=== PATIENT | male | born 1965 | race Caucasian/White ===

== ENCOUNTER 2020-02-28 07:00 | Outpatient (REF) | payer BC, SELFPAY | END 2020-02-28 07:01 | disposition home or self-care (01) | LOC: HO.LAB 07:00 | PROVIDERS: PCP Internal Medicine; Visit Provider Internal Medicine | DX: Z20.828 Contact with and (suspected) exposure to other viral communicable diseases (principal) | CPT/HCPCS: C9803; U0003 ==

== ENCOUNTER 2020-03-26 07:06 | Outpatient (REF) | payer BC, SELFPAY ==
[2020-03-26 08:35] LABS: MANUAL DIFF FLAG NO
[2020-03-26 08:40] LABS: Basophils Percent Auto 0.2 % (0-2); Eosinophils Absolute Auto 0.1 X10*3/uL (0.0-0.4); Eosinophils Percent Auto 2.2 % (0-4); Imm Gran Abs Auto 0.01 X10*3/uL (0.00-0.03); Imm Gran Pct Auto 0.2 % (0.0-0.4); Mean Corpuscular HGB Conc 32.6 g/dl (31.0-36.0); Mean Corpuscular Hemoglobin 33.4 pg (27.0-33.0); Mean Corpuscular Volume 102.6 fL (80-98); Mean Platelet Volume 10.9 fL (9.4-12.4); Monocytes Absolute Auto 0.6 X10*3/uL (0.1-1.2); Monocytes Percent Auto 12.2 % (2-11); Neutrophils Absolute Auto 2.9 X10*3/uL (2.0-8.3); Neutrophils Percent Auto 64.2 % (45-73); Platelet Count 192 X10*3/uL (160-400); Red Blood Count 4.19 X10*6/uL (4.60-5.80); Red Cell Distribution Width 12.2 % (11.0-16.0); White Blood Count 4.5 X10*3/uL (4.8-10.8)
[2020-03-26 08:44] LABS: Glucose Urine UA NEG (NEG); Leukocyte Esterase Urine NEG (NEG); Nitrite Urine NEG (NEG); PH 6.5 (5.0-8.0); Specific Gravity - Urine 1.015 (1.005-1.025); Urine Blood NEG (NEG); Urine Ketones NEG (NEG); Urine Protein 1+ MG/DL (NEG-TRACE)
[2020-03-26 08:51] LABS: Appearance Urine CLEAR; Color Urine YELLOW
[2020-03-26 09:03] LABS: Alanine Aminotransferase 21 U/L (0-40); Alkaline Phosphatase 69 U/L (39-117); Anion Gap 12 (12-20); Aspartate Amino Transferase 31 U/L (5-37); Bilirubin Total 0.8 mg/dL (0.0-1.0); Blood Urea Nitrogen 24 mg/dL (9-16); Carbon Dioxide 32 mmol/L (22-29); Chloride 103 mmol/L (96-108); Cholesterol 154 mg/dL; Estimated Glomerular Filt Rate > 60; Glucose Fasting 88 mg/dL (60-99); HDL Cholesterol 60 mg/dL; LDL Cholesterol Calculated 82 mg/dl; Sodium 142 mmol/L (135-145); Total Protein 7.4 g/dL (6.5-8.0); Triglycerides 60 mg/dL
[2020-03-26 09:12] LABS: RBC Urine 0-2 /HPF (0); Sperm Urine NOTED; Squamous Epithelial Cell Urine TRACE /LPF; WBC Urine 0-2 /HPF (0-4)
[2020-03-26 09:13] LABS: Estimated Average Glucose 97 mg/dL
[2020-03-26 09:20] LABS: Prostate Specific Antigen 0.43 ng/mL (<0.05-4.0)
[2020-03-26 12:07] LABS: Reflex LDLD? No
== END 2020-03-26 07:07 | disposition home or self-care (01) ==
LOC: HO.LAB 07:06
PROVIDERS: PCP Internal Medicine; Visit Provider Internal Medicine
DX: Z00.01 Encounter for general adult medical examination with abnormal findings (principal); E11.40 Type 2 diabetes mellitus with diabetic neuropathy, unspecified; E78.00 Pure hypercholesterolemia, unspecified; R80.9 Proteinuria, unspecified; Z12.5 Encounter for screening for malignant neoplasm of prostate
CPT/HCPCS: 36415; 80053; 80061; 81001; 83036; 84153; 85025

== ENCOUNTER 2020-07-10 07:49 | Day surgery (SDC) | payer BC, SELFPAY ==
[2020-07-05 11:05] VITALS: BMI 29.4
[2020-07-10 07:59] VITALS: BP 178/87; PULSE 67; RESP 18; TEMP 36.3; O2SAT 99
[2020-07-10] MEDS: Sodium Phosphate,Mono-Dibasic 133 ML ENEMA PR (08:17)
--- NOTE | 2020-07-10 08:21 | PC.NURSE ---
fleets given for yellow to brownish liquid results
--- NOTE | 2020-07-10 08:28 | PC.NURSE ---
yellow after fleets
--- NOTE | 2020-07-10 08:54 | HO.ANESPROP2 ---
HPI - Anesthesia Eval Consult details Narrative: 54 yo patient here for colonoscopy [facility] Past Medical History Medical History COVID-19 vaccine administered CVA (cerebral vascular accident) Diabetes Elevated cholesterol Family History Family history of problems with anesthesia: No Surgical History Surgical History H/O colonoscopy History of carotid endarterectomy History of Problems with Anesthesia: No Social History Social History Are you a primary director of managed care to a significant other at home: No Do you presently have visiting nurse or other home services: No Alcohol intake: current Alcohol intake frequency: 3 or more drinks per day Smoking Status: Never smoker Use of substances other than those prescribed or required for medical reasons: No Have you been hit, kicked, punched, or otherwise hurt by someone within the past year? If so, by whom?: No Advance Directives Information Provided: No Recently lost weight without trying: No Meds Allergies Allergy/AdvReac Type Severity Reaction Status Date / Time No Known Allergies Allergy Unverified 12/01/19 15:17 [No Known Allergies*] Home Medications Medication Instructions Recorded Confirmed Last Taken Type Aspir-81 07/10/20 07/03/20 History atorvastatin 1 tab PO DAILY 07/10/20 07/10/20 07/09/20 History Exam Exam Date and Time: July 10, 2020 0854 Height,Weight and Vital Signs: Height 5 ft 10 in Weight 92.986 kg Last Vital Signs Temp 97.3 F 07/10/20 07:59 Pulse 67 07/10/20 07:59 Resp 18 07/10/20 07:59 BP 178/87 H 07/10/20 07:59 Pulse Ox 99 07/10/20 07:59 Airway Mallampati Class: III TM Dist: >3cm Neck ROM: Full Heart: RRR Lungs: CTAB Assessment and Plan Assessment Anesthesia Assessment: Anesthesia Plan Discussed and Chart Reviewed Final Anesthetic Review NPO: Yes ASA Class: III Final Preanesthetic Review: No Changes in Pt Med Stat, Meds/Allgs Chart Reviewed, Consent Obtained/Reviewed and Anes Risks/Benef Reviewed Patient Risk: Intermediate Procedure Risk: Low Assessment/Block/Sedation in SS: Assess/Block/Sedation-SS Anesthetic Plan Anesthetic Plan: MAC: Disposition: Standard PACU
--- NOTE | 2020-07-10 08:58 | PM.OP ---
Brief Operative Note Date of Service: 07/10/20 Pre-op diagnosis: screening Post-op diagnosis: same Surgeon: Cam Newsome Anesthesia: MAC Estimated blood loss (mL): 2 Pathology: other (polyp) Condition: stable Disposition: PACU
--- NOTE | 2020-07-10 09:00 | MHC.SHP ---
Pre-Procedural Eval Section A The patient is an INPATIENT: No Changes since office visit: No Cold of Flu in the past 2 weeks, No New Medical Problems, No Changes in Medication and No Patient answered all questions The History & Physical has been completed within 30 days and I have reviewed it.: Yes Section B Chief Complaint: screening Allergies: Allergies Allergy/AdvReac Type Severity Reaction Status Date / Time No Known Allergies Allergy Unverified 12/01/19 15:17 [No Known Allergies*] Plan I have reviewed the history and physical and performed a pertinent physical examination on my patient. No changes have occurred unless specified.
[2020-07-10 09:33] VITALS: BP 110/63; PULSE 61; RESP 14; TEMP 36.1; O2SAT 97
--- NOTE | 2020-07-10 09:34 | PM.OP ---
Brief Operative Note Date of Service: 07/10/20 Pre-op diagnosis: screening Post-op diagnosis: same Procedure: colonscopy Surgeon: Cam Newsome Anesthesia: MAC Estimated blood loss (mL): 0 Pathology: none sent Condition: stable Disposition: PACU
[2020-07-10 09:48] VITALS: BP 118/67; PULSE 60; RESP 17; TEMP 36.1; O2SAT 99
--- NOTE | 2020-07-10 15:40 | OP_ITS ---
SURGEON: Cam Newsome MD PREOPERATIVE DIAGNOSIS: POSTOPERATIVE DIAGNOSIS: PROCEDURE PERFORMED: Colonoscopy to the terminal ileum. ESTIMATED BLOOD LOSS: COMPLICATIONS: ANESTHESIA: ASSISTANTS: SPECIMENS: INDICATION: Colon cancer screening. MEDICATIONS: Monitored anesthesia care. DESCRIPTION OF PROCEDURE: History and physical was performed. The risks and benefits of the procedure were explained to the patient. Informed consent was obtained. The patient was placed in the left lateral decubitus position. A digital rectal exam was performed and was found to be normal. The Olympus pediatric video colonoscope was introduced into the rectum and advanced into the cecum without difficulty. The cecum was identified by transillumination, palpation, and identification of ileocecal valve. Examination was performed, the scope was removed. He tolerated the procedure well and was taken to recovery area in stable condition. FINDINGS: The terminal ileum was examined and appeared normal. The visualized colonic mucosa was within normal limits without evidence of masses or ulcers. The quality of prep was good. No polyps were identified. Retroflexed examination was normal. IMPRESSION: Normal colonoscopy. RECOMMENDATION: 1. Follow up as needed. 2. Repeat colonoscopy is recommended in 10 years for average risk individuals. MD CRISTIN Adnerson/ALIXL / [id number]
== END 2020-07-10 10:10 | disposition home or self-care (01) ==
PROVIDERS: PCP Internal Medicine; Visit Provider Internal Medicine Gastroenterology
PROC: 0DJD8ZZ Inspection of Lower Intestinal Tract, Via Natural or Artificial Opening Endoscopic (ICD-10-PCS; CPT 45378; principal; 2020-07-10 08:50)
DX: Z12.11 Encounter for screening for malignant neoplasm of colon (principal); I69.951 Hemiplegia and hemiparesis following unspecified cerebrovascular disease affecting right dominant side; Z86.39 Personal history of other endocrine, nutritional and metabolic disease; Z79.899 Other long term (current) drug therapy; Z79.82 Long term (current) use of aspirin
CPT/HCPCS: 45378

== ENCOUNTER 2020-07-17 07:50 | Outpatient (REF) | payer BC, SELFPAY ==
--- NOTE | ~2020-07-17 | XR_ITS ---
EXAMINATION: XR KNEES, STANDING AP XR KNEE, LEFT CLINICAL INFORMATION: Bilateral knee pain COMPARISON: None TECHNIQUE: Standing AP view of both knees is performed. Additional lateral and axial patella views of the left knee are also obtained. FINDINGS: Left: There is no fracture or dislocation. No definite joint narrowing. No subchondral sclerosis or erosive change, spurring, or chondrocalcinosis. There is normal bony mineralization. Lateral view suggests small suprapatellar effusion. Hoffa's fat pad appears normal. There may be mild lateral patellar tilting but no lateralization patella. There is extensive calcifications vasculature. Right: Normal bony mineralization. No focal joint narrowing or erosive change or chondrocalcinosis. There is extensive calcification of the vasculature. XR/XR knee standing BI IMPRESSION: 1. Left: Small suprapatellar effusion. Borderline lateral patellar tilt. 2. Right: Unremarkable. 3. 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
--- NOTE | ~2020-07-17 | XR_ITS ---
EXAMINATION: XR KNEES, STANDING AP XR KNEE, LEFT CLINICAL INFORMATION: Bilateral knee pain COMPARISON: None TECHNIQUE: Standing AP view of both knees is performed. Additional lateral and axial patella views of the left knee are also obtained. FINDINGS: Left: There is no fracture or dislocation. No definite joint narrowing. No subchondral sclerosis or erosive change, spurring, or chondrocalcinosis. There is normal bony mineralization. Lateral view suggests small suprapatellar effusion. Hoffa's fat pad appears normal. There may be mild lateral patellar tilting but no lateralization patella. There is extensive calcifications vasculature. Right: Normal bony mineralization. No focal joint narrowing or erosive change or chondrocalcinosis. There is extensive calcification of the vasculature. XR/XR knee LT 2V IMPRESSION: 1. Left: Small suprapatellar effusion. Borderline lateral patellar tilt. 2. Right: Unremarkable. 3. 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
== END 2020-07-17 07:51 | disposition home or self-care (01) ==
LOC: HO.HOSX 07:50
PROVIDERS: Visit Provider Orthopaedic Surgery
DX: M25.562 Pain in left knee (principal); M25.561 Pain in right knee
CPT/HCPCS: 73560; 73565

== ENCOUNTER 2020-09-27 10:13 | Outpatient (REF) | payer BC, SELFPAY ==
[2020-09-27 10:52] LABS: Estimated Average Glucose 100 mg/dL; Hemoglobin A1c % 5.1 %
[2020-09-27 11:36] LABS: Alanine Aminotransferase 13 U/L (0-40); Albumin Level 3.9 g/dL (3.5-5.0); Alkaline Phosphatase 78 U/L (39-117); Aspartate Amino Transferase 24 U/L (5-37); Bilirubin Direct 0.4 mg/dL (0.0-0.5); Bilirubin Total 0.9 mg/dL (0.0-1.0); Cholesterol 172 mg/dL; Glucose Fasting 88 mg/dL (60-99); HDL Cholesterol 68 mg/dL; LDL Cholesterol Calculated 81 mg/dl; Total Protein 7.4 g/dL (6.5-8.0); Triglycerides 115 mg/dL
[2020-09-27 11:50] LABS: Reflex LDLD? No
== END 2020-09-27 10:14 | disposition home or self-care (01) ==
LOC: HO.LNP 10:13
PROVIDERS: Visit Provider Internal Medicine
DX: E11.40 Type 2 diabetes mellitus with diabetic neuropathy, unspecified (principal); E78.00 Pure hypercholesterolemia, unspecified
CPT/HCPCS: 80061; 80076; 82947; 83036

== ENCOUNTER 2021-04-08 10:31 | Outpatient (REF) | payer BC, SELFPAY ==
[2021-04-08 10:41] LABS: MANUAL DIFF FLAG NO
[2021-04-08 11:25] LABS: Basophils Percent Auto 0.2 % (0-2); Eosinophils Absolute Auto 0.1 X10*3/uL (0.0-0.4); Hematocrit 44.7 % (42.0-52.0); Hemoglobin 14.5 g/dl (14.0-18.0); Imm Gran Abs Auto 0.01 X10*3/uL (0.00-0.03); Imm Gran Pct Auto 0.2 % (0.0-0.4); Lymphocytes Absolute Auto 1.1 X10*3/uL (1.2-4.9); Lymphocytes Percent Auto 24.7 % (20-40); Mean Corpuscular HGB Conc 32.4 g/dl (31.0-36.0); Mean Corpuscular Hemoglobin 33.3 pg (27.0-33.0); Mean Corpuscular Volume 102.5 fL (80.0-98.0); Monocytes Absolute Auto 0.5 X10*3/uL (0.1-1.2); Monocytes Percent Auto 11.5 % (2-11); Neutrophils Absolute Auto 2.8 x10*3/uL (2.0-8.3); Neutrophils Percent Auto 60.4 % (45-73); Platelet Count 191 X10*3/uL (160-400); Red Blood Count 4.36 X10*6/uL (4.60-5.80); Red Cell Distribution Width 12.2 % (11.0-16.0); White Blood Count 4.6 X10*3/uL (4.8-10.8)
[2021-04-08 11:42] LABS: Estimated Average Glucose 103 mg/dL; Hemoglobin A1c % 5.2 %
[2021-04-08 11:49] LABS: Appearance Urine CLEAR; Color Urine YELLOW; Glucose Urine UA NEG (NEG); Leukocyte Esterase Urine NEG (NEG); Nitrite Urine NEG (NEG); Specific Gravity - Urine 1.015 (1.005-1.025); Urine Blood NEG (NEG); Urine Ketones NEG (NEG); Urine Protein 1+ MG/DL (NEG-TRACE)
[2021-04-08 12:29] LABS: Creatinine Urine 73.46 mg/dL; Microalbum/Creatinine Ratio Ur 534.9 ug/mg cr
[2021-04-08 12:39] LABS: PSA,Total (Free>4and<10) 0.49 ng/mL (0.00-4.00)
[2021-04-08 12:56] LABS: Alanine Aminotransferase 25 U/L (0-40); Alkaline Phosphatase 74 U/L (39-117); Anion Gap 13 (12-20); Aspartate Amino Transferase 33 U/L (5-37); Bilirubin Total 0.9 mg/dL (0.0-1.0); Blood Urea Nitrogen 20 mg/dL (9-16); Calcium 9.6 mg/dL (8.4-10.2); Carbon Dioxide 28 mmol/L (22-29); Chloride 105 mmol/L (96-108); Cholesterol 141 mg/dL; Estimated Glomerular Filt Rate 55; Glucose Fasting 92 mg/dL (60-99); HDL Cholesterol 48 mg/dL; LDL Cholesterol Calculated 76 mg/dl; Potassium 4.4 mmol/L (3.3-5.1); Sodium 142 mmol/L (135-145); Total Protein 7.8 g/dL (6.5-8.0); Triglycerides 87 mg/dL
[2021-04-08 13:05] LABS: RBC Urine 0 /HPF (0); Squamous Epithelial Cell Urine TRACE /LPF; WBC Urine 0 /HPF (0-4)
== END 2021-04-08 10:32 | disposition home or self-care (01) ==
LOC: HO.LNP 10:31
PROVIDERS: Visit Provider Internal Medicine
DX: Z00.00 Encounter for general adult medical examination without abnormal findings (principal); E11.40 Type 2 diabetes mellitus with diabetic neuropathy, unspecified; I10 Essential (primary) hypertension; E78.00 Pure hypercholesterolemia, unspecified; Z12.5 Encounter for screening for malignant neoplasm of prostate
CPT/HCPCS: 80053; 80061; 81001; 81003; 82043; 83036; 84153; 85025

== ENCOUNTER 2021-07-19 10:31 | Outpatient (REF) | payer BC, SELFPAY ==
[2021-07-19 11:23] LABS: Blood Urea Nitrogen 25 mg/dL (9-16); Estimated Glomerular Filt Rate 57
== END 2021-07-19 10:32 | disposition home or self-care (01) ==
LOC: HO.LNP 10:31
PROVIDERS: Visit Provider Internal Medicine
DX: Z01.812 Encounter for preprocedural laboratory examination (principal)
CPT/HCPCS: 82565; 84520

== ENCOUNTER 2021-10-11 10:54 | Outpatient (REF) | payer BC, SELFPAY ==
[2021-10-11 11:40] LABS: Estimated Average Glucose 105 mg/dL; Hemoglobin A1c % 5.3 %
[2021-10-11 11:59] LABS: Alanine Aminotransferase 17 U/L (0-40); Albumin Level 3.9 g/dL (3.5-5.0); Alkaline Phosphatase 76 U/L (39-117); Anion Gap 12 (12-20); Aspartate Amino Transferase 22 U/L (5-37); Bilirubin Direct 0.3 mg/dL (0.0-0.5); Bilirubin Total 0.6 mg/dL (0.0-1.0); Blood Urea Nitrogen 21 mg/dL (9-16); Calcium 9.2 mg/dL (8.4-10.2); Carbon Dioxide 31 mmol/L (22-29); Chloride 103 mmol/L (96-108); Cholesterol 153 mg/dL; Estimated Glomerular Filt Rate 58; Glucose Fasting 103 mg/dL (60-99); HDL Cholesterol 49 mg/dL; LDL Cholesterol Calculated 85 mg/dl; Potassium 4.1 mmol/L (3.3-5.1); Sodium 142 mmol/L (135-145); Total Protein 7.7 g/dL (6.5-8.0); Triglycerides 95 mg/dL
== END 2021-10-11 10:55 | disposition home or self-care (01) ==
LOC: HO.LNP 10:54
PROVIDERS: Visit Provider Internal Medicine
DX: E78.00 Pure hypercholesterolemia, unspecified (principal); I10 Essential (primary) hypertension
CPT/HCPCS: 80053; 80061; 80076; 82248; 83036

== ENCOUNTER 2022-04-21 10:39 | Outpatient (REF) | payer BC, SELFPAY ==
[2022-04-21 10:43] LABS: MANUAL DIFF FLAG NO
[2022-04-21 11:23] LABS: Basophils Percent Auto 0.6 % (0-2); Eosinophils Absolute Auto 0.2 X10*3/uL (0.0-0.4); Eosinophils Percent Auto 3.2 % (0-4); Hematocrit 46.2 % (42.0-52.0); Hemoglobin 15.2 g/dl (14.0-18.0); Imm Gran Abs Auto 0.01 X10*3/uL (0.00-0.03); Imm Gran Pct Auto 0.2 % (0.0-0.4); Lymphocytes Absolute Auto 1.1 X10*3/uL (1.2-4.9); Lymphocytes Percent Auto 21.2 % (20-40); Mean Corpuscular HGB Conc 32.9 g/dl (31.0-36.0); Mean Corpuscular Hemoglobin 33.1 pg (27.0-33.0); Mean Corpuscular Volume 100.7 fL (80.0-98.0); Mean Platelet Volume 10.7 fL (9.4-12.4); Monocytes Absolute Auto 0.6 X10*3/uL (0.1-1.2); Monocytes Percent Auto 10.9 % (2-11); Neutrophils Absolute Auto 3.5 x10*3/uL (2.0-8.3); Neutrophils Percent Auto 63.9 % (45-73); Platelet Count 201 X10*3/uL (160-400); Red Blood Count 4.59 X10*6/uL (4.60-5.80); Red Cell Distribution Width 12.3 % (11.0-16.0); White Blood Count 5.4 X10*3/uL (4.8-10.8)
[2022-04-21 11:55] LABS: Appearance Urine Clear; Color Urine Yellow; Glucose Urine UA Negative (Negative); Leukocyte Esterase Urine Negative (Negative); Nitrite Urine Negative (Negative); UMIC TRIGGER UACC YES; Urine Blood Negative (Negative); Urine Ketones Negative (Negative); Urine Protein 100 (2+) mg/dL (Neg-Trace)
[2022-04-21 11:59] LABS: Bacteria Urine None Seen (None Seen); Hyaline Casts Urine 0-2 /LPF (0-2); RBC Urine 0-2 /HPF (0-2); Squamous Epithelial Cell Urine 0-2 /HPF (0-2); WBC Urine 0-5 /HPF (0-5)
[2022-04-21 12:30] LABS: Alanine Aminotransferase 16 U/L (0-40); Albumin Level 3.8 g/dL (3.5-5.0); Alkaline Phosphatase 78 U/L (39-117); Anion Gap 10 (12-20); Aspartate Amino Transferase 21 U/L (5-37); Bilirubin Direct 0.2 mg/dL (0.0-0.5); Bilirubin Total 0.8 mg/dL (0.0-1.0); Blood Urea Nitrogen 17 mg/dL (9-16); Calcium 9.1 mg/dL (8.4-10.2); Carbon Dioxide 33 mmol/L (22-29); Chloride 103 mmol/L (96-108); Cholesterol 167 mg/dL; Estimated Glomerular Filt Rate > 60; Glucose Fasting 98 mg/dL (60-99); HDL Cholesterol 53 mg/dL; LDL Cholesterol Calculated 99 mg/dl; Potassium 4.4 mmol/L (3.3-5.1); Sodium 142 mmol/L (135-145); Total Protein 7.4 g/dL (6.5-8.0); Triglycerides 79 mg/dL
[2022-04-21 12:32] LABS: Creatinine Urine 50.74 mg/dL
[2022-04-21 12:35] LABS: PSA,Total (Free>4and<10) 0.56 ng/mL (0.00-4.00)
[2022-04-21 12:44] LABS: Microalbum/Creatinine Ratio Ur 1564.8 ug/mg cr
[2022-04-21 12:58] LABS: Reflex LDLD? No
== END 2022-04-21 10:40 | disposition home or self-care (01) ==
LOC: HO.LNP 10:39
PROVIDERS: Visit Provider Internal Medicine
DX: Z12.5 Encounter for screening for malignant neoplasm of prostate (principal); E11.40 Type 2 diabetes mellitus with diabetic neuropathy, unspecified; I10 Essential (primary) hypertension; E78.00 Pure hypercholesterolemia, unspecified; I77.9 Disorder of arteries and arterioles, unspecified
CPT/HCPCS: 80053; 80061; 80076; 81001; 81003; 82043; 82248; 84153; 85025

== ENCOUNTER 2023-04-10 11:20 | Outpatient (REF) | payer BC, SELFPAY ==
[2023-04-10 11:24] LABS: MANUAL DIFF FLAG NO
[2023-04-10 11:44] LABS: Appearance Urine Clear; Color Urine Yellow; Glucose Urine UA Negative (Negative); Leukocyte Esterase Urine Negative (Negative); Nitrite Urine Negative (Negative); Specific Gravity - Urine 1.015 (1.005-1.025); UMIC TRIGGER UACC YES; Urine Blood Negative (Negative); Urine Ketones Negative (Negative); Urine Protein 30 (1+) mg/dL (Neg-Trace)
[2023-04-10 11:46] LABS: Basophils Percent Auto 0.4 % (0-2); Eosinophils Absolute Auto 0.1 X10*3/uL (0.0-0.4); Eosinophils Percent Auto 2.8 % (0-4); Hematocrit 42.6 % (42.0-52.0); Hemoglobin 13.8 g/dl (14.0-18.0); Imm Gran Abs Auto 0.02 X10*3/uL (0.00-0.03); Imm Gran Pct Auto 0.4 % (0.0-0.4); Lymphocytes Percent Auto 20.9 % (20-40); Mean Corpuscular HGB Conc 32.4 g/dl (31.0-36.0); Mean Corpuscular Hemoglobin 33.4 pg (27.0-33.0); Mean Corpuscular Volume 103.1 fL (80.0-98.0); Mean Platelet Volume 10.6 fL (9.4-12.4); Monocytes Absolute Auto 0.5 X10*3/uL (0.1-1.2); Neutrophils Absolute Auto 3.2 x10*3/uL (2.0-8.3); Neutrophils Percent Auto 64.5 % (45-73); Platelet Count 207 X10*3/uL (160-400); Red Blood Count 4.13 X10*6/uL (4.60-5.80); Red Cell Distribution Width 12.6 % (11.0-16.0); White Blood Count 4.9 X10*3/uL (4.8-10.8)
[2023-04-10 11:48] LABS: Bacteria Urine None Seen (None Seen); Hyaline Casts Urine 0-2 /LPF (0-2); RBC Urine 0-2 /HPF (0-2); Squamous Epithelial Cell Urine 0-2 /HPF (0-2); WBC Urine 0-5 /HPF (0-5)
[2023-04-10 11:54] LABS: Estimated Average Glucose 105 mg/dL; Hemoglobin A1c % 5.3 % (<6.0)
[2023-04-10 11:59] LABS: Alanine Aminotransferase 20 U/L (0-40); Albumin Level 3.8 g/dL (3.5-5.0); Alkaline Phosphatase 69 U/L (39-117); Anion Gap 15 (12-20); Aspartate Amino Transferase 23 U/L (5-37); Bilirubin Total 0.6 mg/dL (0.0-1.0); Blood Urea Nitrogen 36 mg/dL (9-16); Calcium 9.5 mg/dL (8.4-10.2); Carbon Dioxide 28 mmol/L (22-29); Chloride 104 mmol/L (96-108); Cholesterol 149 mg/dL (<200); Estimated Glomerular Filt Rate 44; Glucose Fasting 100 mg/dL (60-99); HDL Cholesterol 45 mg/dL (>40); LDL Cholesterol Calculated 88 mg/dL (<100); Potassium 4.4 mmol/L (3.3-5.1); Sodium 143 mmol/L (135-145); Total Protein 7.6 g/dL (6.5-8.0); Triglycerides 83 mg/dL (<150)
[2023-04-10 12:15] LABS: PSA,Total (Free>4and<10) 0.54 ng/mL (0.00-4.00)
[2023-04-10 12:43] LABS: Creatinine Urine 108.47 mg/dL; Microalbum/Creatinine Ratio Ur 306.9 ug/mg cr (<30)
== END 2023-04-10 11:21 | disposition home or self-care (01) ==
LOC: HO.LNP 11:20
PROVIDERS: Visit Provider Internal Medicine
DX: Z00.00 Encounter for general adult medical examination without abnormal findings (principal); Z12.5 Encounter for screening for malignant neoplasm of prostate; E11.40 Type 2 diabetes mellitus with diabetic neuropathy, unspecified; E78.00 Pure hypercholesterolemia, unspecified; I10 Essential (primary) hypertension
CPT/HCPCS: 80053; 80061; 81001; 82043; 82570; 83036; 84153; 85025

== ENCOUNTER 2023-10-16 11:20 | Outpatient (REF) | payer BC, SELFPAY ==
[2023-10-16 12:05] LABS: Alanine Aminotransferase 23 U/L (0-40); Albumin Level 4.1 g/dL (3.5-5.0); Alkaline Phosphatase 72 U/L (39-117); Aspartate Amino Transferase 26 U/L (5-37); Bilirubin Direct 0.3 mg/dL (0.0-0.5); Bilirubin Total 0.9 mg/dL (0.0-1.0); Cholesterol 132 mg/dL (<200); Glucose Fasting 88 mg/dL (60-99); HDL Cholesterol 46 mg/dL (>40); LDL Cholesterol Calculated 65 mg/dL (<100); Total Protein 7.9 g/dL (6.5-8.0); Triglycerides 105 mg/dL (<150)
[2023-10-16 12:45] LABS: Estimated Average Glucose 108 mg/dL; Hemoglobin A1c % 5.4 % (<6.0)
[2023-10-16 13:45] LABS: Reflex LDLD? No
== END 2023-10-16 11:21 | disposition home or self-care (01) ==
LOC: HO.LNP 11:20
PROVIDERS: Visit Provider Internal Medicine
DX: E11.40 Type 2 diabetes mellitus with diabetic neuropathy, unspecified (principal); E78.00 Pure hypercholesterolemia, unspecified
CPT/HCPCS: 80061; 80076; 82947; 83036

== ENCOUNTER 2024-04-14 10:43 | Outpatient (REF) | payer BC, SELFPAY ==
[2024-04-14 11:09] LABS: MANUAL DIFF FLAG NO
[2024-04-14 11:26] LABS: Basophils Percent Auto 0.6 % (0-2); Eosinophils Absolute Auto 0.3 X10*3/uL (0.0-0.4); Eosinophils Percent Auto 5.7 % (0-4); Hematocrit 43.3 % (42.0-52.0); Imm Gran Abs Auto 0.01 X10*3/uL (0.00-0.03); Imm Gran Pct Auto 0.2 % (0.0-0.4); Lymphocytes Absolute Auto 1.1 X10*3/uL (1.2-4.9); Lymphocytes Percent Auto 23.9 % (20-40); Mean Corpuscular HGB Conc 32.3 g/dl (31.0-36.0); Mean Corpuscular Hemoglobin 33.3 pg (27.0-33.0); Mean Corpuscular Volume 102.9 fL (80.0-98.0); Mean Platelet Volume 10.5 fL (9.4-12.4); Monocytes Absolute Auto 0.6 X10*3/uL (0.1-1.2); Monocytes Percent Auto 12.5 % (2-11); Neutrophils Absolute Auto 2.7 x10*3/uL (2.0-8.3); Neutrophils Percent Auto 57.1 % (45-73); Platelet Count 218 X10*3/uL (160-400); Red Blood Count 4.21 X10*6/uL (4.60-5.80); Red Cell Distribution Width 13.1 % (11.0-16.0); White Blood Count 4.7 X10*3/uL (4.8-10.8)
[2024-04-14 11:27] LABS: Appearance Urine Clear; Color Urine Yellow; Glucose Urine UA Negative (Negative); Leukocyte Esterase Urine Negative (Negative); Nitrite Urine Negative (Negative); PH 6.5 (5.0-9.0); Specific Gravity - Urine 1.015 (1.005-1.025); UMIC TRIGGER UACC YES; Urine Blood Negative (Negative); Urine Ketones Negative (Negative); Urine Protein 30 (1+) mg/dL (Neg-Trace)
[2024-04-14 11:29] LABS: Bacteria Urine None Seen (None Seen); Hyaline Casts Urine 0-2 /LPF (0-2); RBC Urine 0-2 /HPF (0-2); Squamous Epithelial Cell Urine 0-2 /HPF (0-2); WBC Urine 0-5 /HPF (0-5)
[2024-04-14 11:34] LABS: Estimated Average Glucose 108 mg/dL; Hemoglobin A1C 132.1195 umol/L; Hemoglobin A1c % 5.4 % (<6.0); Total Hemoglobin (HGBA1C) 3745.6374 umol/L
[2024-04-14 11:47] LABS: Alanine Aminotransferase 24 U/L (0-40); Alkaline Phosphatase 65 U/L (39-117); Anion Gap 11 (12-20); Aspartate Amino Transferase 33 U/L (5-37); Bilirubin Total 0.6 mg/dL (0.0-1.0); Blood Urea Nitrogen 26 mg/dL (9-16); Calcium 9.5 mg/dL (8.4-10.2); Carbon Dioxide 29 mmol/L (22-29); Chloride 106 mmol/L (96-108); Cholesterol 143 mg/dL (<200); Estimated Glomerular Filt Rate > 60; Glucose Fasting 99 mg/dL (60-99); HDL Cholesterol 50 mg/dL (>40); LDL Cholesterol Calculated 75 mg/dL (<100); Potassium 4.5 mmol/L (3.3-5.1); Sodium 141 mmol/L (135-145); Triglycerides 90 mg/dL (<150)
[2024-04-14 12:03] LABS: PSA,Total (Free>4and<10) 0.48 ng/mL (0.00-4.00)
[2024-04-14 12:49] LABS: Creatinine Urine 81.62 mg/dL
--- OUTSIDE RECORDS SUMMARY | 2024-04-14 14:27 | XMS_ITS ---
Author Organization Ehsan Howard MD Address [address] [place], [place] [id number] Care Team Providers Care Representative Name Role Phone Ehsan Howard Primary Care Provider [phone] Allergies Allergen (clinical drug ingredient) Drug/Non Drug Allergy documented on EMR Reaction Allergy Type Onset Date Status metformin Metformin HCl diarrhea Drug Allergy Act franklin labetalol Labetalol HCl rash Drug Allergy Act franklin glimepiride Glimepiride heart burn nausea Drug Allergy Active REASON FOR VISIT 6 MO F/U Medications Medication SIG (Take, Route, Frequency, Duration) Notes Start Date End Date Status Atorvastatin Calcium 80 MG take 1 tablet once daily Orally Once a day Active Lisinopril 10 MG TAKE ONE TABLET BY MOUTH ONCE DAILY Active Aspir-81 81 MG 1 tablet Orally Once a day Active Viagra 100 MG 1/2 tablet as needed Orally Once a day for 30 day(s) 05/19/2016 Not-Taking Vital Signs Blood pressure systolic 120 mm Hg 10/29/19 24 Blood pressure diastolic 70 mm Hg 024 Height 71 in 10/29/2023 Weight 231 lbs 10/29/2023 BMI 32.21 kg/m2 10/29/2023 weight is up 11 pounds since 04-17-23 Encounters Encounter Location Date Provider Diagnosis Ehsan Howard MD [address] [place] [address] Drive [address] [place] [phone] 10/29/2023 Ehsan Howard Type 2 diabetes robert itus with diabetic neuropathy E11.40 ; Essential hypertension I10 and Pure hypercholesterolemia E78.00 Assessments Encounter Date Diagnosis (ICD Code) Assessment Notes Treatment Notes Treatment Clinical Notes Section Notes 10/29/2023 Type 2 diabetes robert itus with diabetic neuropathy (ICD-10 - E11.40) gaining weight and not exercising. tried to get him back to taking care. seems uninterested , will continue to monitor 10/29/2023 Essential hypertensi on (ICD-10 - I10) doing great on meds 10/29/2023 Pure hypercholesterolemia (ICD-10 - E78.00) good ldl Plan Of Treatment Medication Medication Name Sig Start Date Stop Date Notes Atorvastatin Calcium 80 MG take 1 tablet once daily Orally Once a day Lisinopril 10 MG TAKE ONE TABLET BY OUT ONCE DAILY Treatment Notes Assessment Notes Type 2 diabetes mellitus with diabetic n europathy gaining weight and not exercising. tried to get him back to taking care. seems uninterested, will continue to monitor Essential hypertension doing great on me ds Pure hypercholesterolemia good ldl Next Appt Details Provider Name:Ehsan Mazariegos ier, 04/21/2024 08:30:00 AM, [address], [address], [place], [place], [phone], Progress Notes * Vazquez GONZALES MDOB:1965 (58 yo M)Acc No.[id number]:10/29/2023 Progress Notes Patient:?Vazquez Gonzales Provider:?Ehsan Howard MD :1965???Age:58 Y???Sex:Male Mathew e:10/29/2023 Address:[address] [place], [place] [id number] Subjective: * Chief Complaints: * ???6 MO F/U * HPI: ???Symptom(s):? patient s a 58 yo male her for 6 month follow up visit, has stopped exercise. no interest. * ROS:?General/Constitutional:?Denies?Chills.?Denies?Fatigue.?Denies?Fever.?Denies?Headache.?ENT:?Patient denies?decreased sense of smell , any loss of taste , sore throat.?Denies?Sore throat.?Endocrine:?Denies?Difficulty sleeping.?Denies?Dizziness.?Denies?Excessive sweating.?Denies?Excessive thirst.?Denies?Frequent urination.?Respiratory:?Denies?Cough.?Denies?Shortness of breath at rest.?Denies?Shortness of breath with exertion.?Gastrointestinal:?Denies?Diarrhea.?Denies?Nausea.?Musculoskeletal:?Patient denies?muscle aches.?Peripheral Vascular:?Patient denies?red and blue toes.? * Medical History:? * Surgical History:? * Hospitalization/Major Diagno stic Procedure:? * Medications:?TakingAspir-81 81 MG Tablet Delayed Release 1 tablet Orally Once a dayAtorvastatin Calcium 80 MG Tablet take 1 tablet once daily Orally Once a dayLisinopril 10 MG Tablet TAKE ONE TABLET BY MOUTH ONCE DAILY Taking Aspir-81 81 MG Tablet Delayed Release 1 tablet Orally Once a dayTaking Atorvastatin Calcium 80 MG Tablet take 1 tablet once daily Orally Once a dayTaking Lisinopril 10 MG Tablet TAKE ONE TABLET BY MOUTH ONCE DAILY Not-Taking/PRNViagra 100 MG Tablet 1/2 tablet as needed Orally Once a dayMedication List reviewed and reconciled with the patientNot-Taking/PRN Viagra 100 MG Tablet 1/2 tablet as needed Orally Once a dayMedication List reviewed and reconciled with the patient * Allergies:?Metformin HCl: di arrheaGlimepiride: heart burn nauseaLabetalol HCl: rashyes[Allergies Verified] Objective: * Vitals:?Ht: 71, Wt:231, BMI: 32.21, BP:120/70 weight is up 11 pounds since 04-17-23. * ???Past Orders: ???Lab:Liver Panel (Order Da te 10/16/2023) (Collection Date - 10/16/2023) ? Value Reference Range ?Bilirubin Total 0.9 0.0- 1.0 - mg/dL ?Bilirubin Direct 0.3 0.0 -0.5 - mg/dL ?Aspartate Amino Transferase 26 5-37 - U/L ?Alanine Aminotransferase 23 0-40 - U/L ?Total Protein 7.9 6.5-8. 0 - g/dL ?Albumin Level 4.1 3.5-5. 0 - g/dL ?Alkaline Phosphatase 72 39-117 - U/L ???Lab:Glucose Fasting (Orde r - 10/16/2023) (Collection Date - 10/16/2023) ? Value Reference Range ?Glucose Fasting 88 60-9 9 - mg/dL ???Lab:Lipid Panel with Refl ex (Order Date - 10/16/2023) (Collection Date - 10/16/2023) ? Value Reference Range ?Triglycerides 105 <150 - mg/dL ?Cholesterol 132 <200 - m g/dL ?LDL Cholesterol Calculated 65 <100 - mg/dL ?HDL Cholesterol 46 >40 - mg/dL ???Lab:Hemoglobin A1c (Order Date - 10/16/2023) (Collection Date - 10/16/2023) ? Value Reference Range ?Hemoglobin A1c % 5.4 <6. 0 - % ?Estimated Average Glucose 108 - mg/dL * Examination: ???General Examination: ?GENERAL APPEARANCE:? alert, well hydrated, in no distress .?NECK/THYROID:? no carotid bruit.?SKIN:? good turgor.?HEART:? no murmurs, rubs, gallops, regular rate and rhythm.?LUNGS:? no wheezes, rales, rhonchi, good air movement, clear to auscultation bilaterally.? Assessment: * Assessment: 1.?Type 2 diabetes mellitus with diabetic neuropathy - E11.40 (Primary)?2.?Essential hypertension - I10?3.?Pure hypercholesterolemia - E78.00? Plan: * Treatment: 2.?Essential hypertension? Continue Lisinopril Tablet, 10 MG, TAKE ONE TABLET BY MOUTH ONCE DAILY.?? Notes: doing great on meds.?? 3.?Pure hypercholesterolemia ? Continue Atorvastatin Calcium Tablet, 80 MG, take 1 tablet once daily, Orally, Once a day.?? Notes: good ldl.?? * Procedure Codes:? * * Sign off status: Completed true * Provider:?Ehsan Howard MD Date:?0 10/29/2023 Generated for Edis new/Malathi/Christianitting on:?04/14/2024 02:27 PM EST History and Physical Notes * HPI (History of Present Illness) Category Sub-Category Detail Notes Category Not es Symptom(s) patient s a 58 yo male her for 6 month follow up visit, has stopped exercise. no interest Examination Category Sub-Category Detail Notes Category Not es General Examination GENERAL APPEARANCE: alert, w ell hydrated, in no distress NECK/THYROID: no carotid bruit HEART: no murmurs, rubs, ga llops, regular rate and rhythm LUNGS: no wheezes, rales, r honchi, good air movement, clear to auscultation bilaterally SKIN: good turgor
--- OUTSIDE RECORDS SUMMARY | 2024-04-14 14:27 | XMS_ITS ---
Author Organization Ehsan Howard MD Address [address] [place] [phone] Care Team Providers Care Plan Checker Name Role Phone Ehsan Howard Primary Care Provider REASON FOR VISIT Carotid duplex Encounters Encounter Location Date Provider Diagnosis Ehsan Howard MD [address] [facility] [address] [place] [phone] 12/04/2023 Ehsan Howard Plan Of Treatment Next Appt Details Provider Name:Ehsan Mazariegos ier, 04/21/2024 08:30:00 AM, [address] [place] [address], [address] [facility], [place], [place], [phone], Progress Notes * Vazquez GONZALES MDOB:1965 (58 yo M)Acc No.[id number]:12/04/2023 Patient:?Vazquez Gonzales :1965???Age:58 Y???Sex:Male Address:[address] [place] [address], [place] [address] * true * Date:? Generated for Edis new/Malathi/Francheska on:?04/14/2024 02:27 PM EST
--- OUTSIDE RECORDS SUMMARY | 2024-04-14 14:27 | XMS_ITS | Clinical Summary ---
Author Organization [facility] Address [address] [place] [address] Care Team Providers Care Jackspooler Name Role Phone Unavailable Primary Care Provider Unavailabl e Allergies No known active allergies Medications * This document contains information received from the source organization and may not represent a complete record from that organization. No known medications Social History Tobacco Use Types Packs/Day Years Used Date Smoking Tobacco: Never Smokeless Tobacco: Never Alcohol Use Standard Drinks/Week Comments Not Asked 0 (1 standard drink = 0.6 oz pur e alcohol) Sex and Gender Information Value Date Recorded Sex Assigned at Not on file Legal Sex Male 1:52 PM EDT Gender Identity Not on file Sexual Orientation Not on file Last Filed Vital Signs Vital Sign Reading Time Taken Comments Blood Pressure 118/82 04/07/2016 8:13 AM EST Pulse 80 04/07/2016 8:13 AM EST Temperature - - Respiratory Rate - - Oxygen Saturation - - Inhaled Oxygen Concentration - - Weight 123 kg (272 lb) 10/25/2013 8:06 AM EDT Height 177.8 cm (5' 10 ) 10/25/2013 8:06 AM EDT Body Mass Index 39.03 10/25/2013 8:06 AM EDT Plan of Treatment Health Maintenance Due Date Last Done Comments Hepatitis C Screening 1965 DTaP/Tdap/Td (1 - Tdap) 07/27/1981 Pneumococcal 50+ years (1 of 1 - PCV) 07/27/2013 Zoster (Shingrix) (1 of 2) 07/27/2013 COVID-19 Vaccine ( - 2023-2 5 season) 2023 Influenza (#1) 2023 RSV (1 - 1-dose 75+ series) 07/27/2038 HPV Vaccine Aged Out No longer eligi ble based on patient's age to complete this topic Hep A Aged Out No longer eligi ble based on patient's age to complete this topic Hep B Aged Out No longer eligi ble based on patient's age to complete this topic Hib Aged Out No longer eligi ble based on patient's age to complete this topic Meningococcal ACWY Aged Out No longer eligible based on patient's age to complete this topic Zoster (Zostavax) Discontinued
--- OUTSIDE RECORDS SUMMARY | 2024-04-14 14:27 | XMS_ITS ---
Author Organization Ehsan Howard MD Address [address] [place], [place] [id number] Care Team Providers Care Buffing Wheel Operator Name Role Phone Ehsan Howard Primary Care Provider Results Component Value Reference Range Notes Complete Blood Count Auto Di ff (Not yet reviewed by provider) Interpretation: Performing Lab:[facility], [address] [place] [phone] Notes/Report: White Blood Count 4.7 4.8-10.8 X10*3/uL Red Blood Count 4.21 4.60-5.80 X10*6/uL Hemoglobin 14.0 14.0-18.0 g/dl Hematocrit 43.3 42.0-52.0 % Mean Corpuscular Volume 102.9 80.0-98.0 fL Mean Corpuscular Hemoglobin 33.3 27.0-33.0 pg Mean Corpuscular HGB Conc 32.3 31.0-36.0 g/dl Red Cell Distribution Width 13.1 11.0-16.0 % Platelet Count 218 160-400 X10*3/uL Mean Platelet Volume 10.5 9.4-12.4 fL Neutrophils Percent Auto 57.1 45-73 % Imm Gran Pct Auto 0.2 0.0-0.4 % Lymphocytes Percent Auto 23.9 20-40 % Monocytes Percent Auto 12.5 2-11 % Eosinophils Percent Auto 5.7 0-4 % Basophils Percent Auto 0.6 0-2 % NRBC Pct Auto 0.0 0.0-0.2 /100WBC Neutrophils Absolute Auto 2.7 2.0-8.3 x10*3/u L Imm Gran Abs Auto 0.01 0.00-0.03 X10*3/uL Lymphocytes Absolute Auto 1.1 1.2-4.9 X10*3/u L Monocytes Absolute Auto 0.6 0.1-1.2 X10*3/uL Eosinophils Absolute Auto 0.3 0.0-0.4 X10*3/u L Basophils Absolute Auto 0.0 0.0-0.2 X10*3/uL NRBC Abs Auto 0.000 0.0-0.012 X10*3/uL Comprehensive Rochel[place]. Panel Fa st (Not yet reviewed by provider) Interpretation: Performing Lab:[facility], [address] [place] [phone] Notes/Report: Sodium 141 135-145 mmol/L Potassium 4.5 3.3-5.1 mmol/L Chloride 106 96-108 mmol/L Carbon Dioxide 29 22-29 mmol/L Anion Gap 11 12-20 Blood Urea Nitrogen 26 9-16 mg/dL Creatinine 1.16 0.5-1.4 mg/dL Estimated Glomerular Filt Rate > 60 Chronic Kidney Disease: Estimated GFR < 60 mL/min/1.73m2 Severe Kidney Disease: Estimated GFR < 15 mL/min/1.73m2 Glucose Fasting 99 60-99 mg/dL Calcium 9.5 8.4-10.2 mg/dL Bilirubin Total 0.6 0.0-1.0 mg/dL Aspartate Amino Transferase 33 5-37 U/L Alanine Aminotransferase 24 0-40 U/L Total Protein 8.0 6.5-8.0 g/dL Albumin Level 4.0 3.5-5.0 g/dL Alkaline Phosphatase 65 39-117 U/L Microalbumin, Random (Not ye t reviewed by provider) Interpretation: Performing Lab:[facility], [address] [place] [phone] Notes/Report: Creatinine Urine 81.62 Microalbumin Urine 342.0 Microalbum/Creatinine Ratio Ur 419.0 <30 ug/mg cr Albumin/Creatinine Ratio Reference Ranges: Normal: < 30 ug/mg creatinine Microalbuminuria: 30 - 300 ug/mg creatinine Clinical Albuminuria: > 300 ug/mg creatinine UA ClnCatch+Micro w/rflx Cul t (Not yet reviewed by provider) Interpretation: Performing Lab:[facility], [address] [place] [phone] Notes/Report: [id number] 0730 Urine, Clean Catch Color Urine Yellow Appearance Urine Clear PH 6.5 5.0-9.0 Glucose Urine UA Negative Negative mg/dL Urine Blood Negative Negative Specific [place] - Urine 1.015 1.005-1.025 Urine Protein 30 (1+) Neg-Trace mg/dL Urine Ketones Negative Negative mg/dL Nitrite Urine Negative Negative Leukocyte Esterase Urine Negative Negative RBC Urine 0-2 0-2 /HPF WBC Urine 0-5 0-5 /HPF Squamous Epithelial Cell Urine 0-2 0-2 /HPF Bacteria Urine None Seen None Seen Hyaline Casts Urine 0-2 0-2 /LPF Lipid Panel Reviewed date:04/14/2024 12:12:47 PM Interpretation: Performing Lab:[facility], [address] [place] [phone] Notes/Report: Triglycerides 90 <150 mg/dL Desirable Triglyceride: less than 150 mg/dL Borderline High Triglyceride 150-199 mg/dL High Triglyceride: 200-499 mg/dL Very High Triglyceride: greater than or equal to 5OO mg/dL Cholesterol 143 <200 mg/dL Desirable Cholesterol: less than 200 mg/dL Borderline High Cholesterol: 200-239 mg/dL High Cholesterol: greater than 239 mg/dL LDL Cholesterol Calculated 75 <100 mg/dL Desirable LDL: less than 100 mg/dL Near Optimal/Above Optimal LDL: 110-129 mg/dL Borderline High LDL: 130-159 mg/dL High LDL: 160-189 mg/dL Very High LDL: greater than or equal to 190 mg/dL HDL Cholesterol 50 >40 mg/dL Desirable HDL: greater than 40 mg/dL Note: This HDL assay may give artificially low results in patients with liver disease. PSA,Total (Free>4and<10) Reviewed date:04/14/2024 12:12:55 PM Interpretation: Performing Lab:[facility], [address] [place] [phone] Notes/Report: PSA,Total (Free>4and<10) 0.48 0.00-4.00 ng/mL A Free PSA was not performed: The percentage of Free PSA can be used to enhance the differentiation of prostate cancer from benign prostatic disease in subjects whose PSA levels are between 4.0 and 10.0 ng/mL. For subjects whose PSA levels are below 4.0 or above 10.0 ng/mL, the risk of prostate cancer is determined on the basis of the PSA alone. Therefore the % Free PSA is recommended only for those subjects whose PSA levels are between 4.0 and 10.0 ng/mL. PSA methodology: Gilbert Alinity i Chemiluminescent Microparticle Immunoassay (CMIA) Hemoglobin A1c Reviewed date:04/14/2024 11:49:27 AM Interpretation: Performing Lab:[facility], [address] [place] [phone] Notes/Report: Hemoglobin A1c % 5.4 <6.0 % Hemoglobin A1C Reference Range Adults: 4.8 - 6.0 % Non diabetic: < 6.0 % Goal: < 7.0 % Additional Action Suggested: > 8.0 % Note: Hemoglobin A1c results are invalid for patients with abnormal amounts of HbF. Blood transfusions may impact the HbA1c concentration in the patient sample. Estimated Average Glucose 108 eAG = Estimated average glucose which is %A1C expressed as average glucose, using the formula of the C4G-Dfnqlig Average Glucose study (ADAG), Diabetes Care, Vol.31,#8, Oct. 2007 REASON FOR VISIT FAASTING LABS Encounters Encounter Location Date Provider Diagnosis Ehsan Howard MD [address] [place] [address] Drive [address] [place], [place] [phone] 04/14/2024 Ehsan Howard Blood tests for routine general physical examination Z00.00 ; Type 2 diabetes mellitus with diabetic neuropathy E11.40 and Essential hypertension I10 Assessments Encounter Date Diagnosis (ICD Code) Assessment Notes Treatment Notes Treatment Clinical Notes Section Notes 04/14/2024 Blood tests for routine general physical examination (ICD-10 - Z00.00) 04/14/2024 Type 2 diabetes mellitus with diabetic neuropathy (ICD-10 - E11.40) 04/14/2024 Essential hypertension (ICD-10 - I10) Plan Of Treatment Pending Test Test Name Order Date Complete Blood Count Auto Diff Comprehensive Rochel[place]. Panel Fast 5 Microalbumin, Random 04/14/2024 UA ClnCatch+Micro w/rflx Cult 04/14/2024 Next Appt Details Provider Name:Ehsan Mazariegos ier, 04/21/2024 08:30:00 AM, [address] [facility], [address], [place], [place], [phone], Progress Notes * Vazquez GONZALES MDOB:1965 (58 yo M)Acc No.[id number]:04/14/2024 Progress Note Patient:?Vazquez GONZALES Provider:?Ehsan Howard MD :1965???Age:58 Y???Sex:Male Mathew e:04/14/2024 Address:[address] [place], [place] [id number] Subjective: * Chief Complaints: * ???1. FAASTING LABS. * Medical History:? Objective: * Vitals:? Assessment: * Assessment: 1.?Blood tests for routine g eneral physical examination - Z00.00 (Primary)???2.?Type 2 diabetes mellitus with diabetic neuropathy - E11.40???3.?Essential hypertension - I10??? Plan: * Treatment: 2.?Type 2 diabetes mellitus with diabetic neuropathy?LAB: Complete Blood Count Auto Diff (Collection Date & Time - 04/14/2024 07:30 AM) ?LAB: Comprehensive [place]. Panel Fast (Collection Date & Time - 04/14/2024 07:30 AM) ?LAB: Microalbumin, Random (Collection Date & Time - 04/14/2024 07:30 AM) ?LAB: UA ClnCatch+Micro w/rflx Cult (Collection Date & Time - 04/14/2024 07:30 AM) ?LAB: Lipid Panel (Collection Date & Time - 04/14/2024 07:30 AM) ?LAB: PSA,Total (Free>4and<10) (Collection Date & Time - 04/14/2024 07:30 AM) ?LAB: Hemoglobin A1c (Collection Date & Time - 04/14/2024 07:30 AM) 3.?Essential hypertension?LAB: Complete Blood Count Auto Diff (Collection Date & Time - 04/14/2024 07:30 AM) ?LAB: Comprehensive [place]. Panel Fast (Collection Date & Time - 04/14/2024 07:30 AM) ?LAB: Microalbumin, Random (Collection Date & Time - 04/14/2024 07:30 AM) ?LAB: UA ClnCatch+Micro w/rflx Cult (Collection Date & Time - 04/14/2024 07:30 AM) ?LAB: Lipid Panel (Collection Date & Time - 04/14/2024 07:30 AM) ?LAB: PSA,Total (Free>4and<10) (Collection Date & Time - 04/14/2024 07:30 AM) ?LAB: Hemoglobin A1c (Collection Date & Time - 04/14/2024 07:30 AM) * Procedure Codes:?91516 VENIP UNCT, ROUTINE* * * The named appointment provid er may or may not be the originator of this progress note, and it is not deemed complete until electronically signed by the appointment provider. Sign off status: Pending * Provider:?Ehsan Howard MD Date:?0 04/14/2024 Generated for Edis new/Malathi/eTransmitting on:?04/14/2024 02:27 PM EST
--- OUTSIDE RECORDS SUMMARY | 2024-04-14 14:28 | XMS_ITS | Patient Health Record ---
Author Organization [facility] Address [address] [place] [phone] Care Team Providers Care Second Miller Name Role Phone Lee KING, Ehsan Primary Care Provider Cam Pagan Jr Unavailable [phone] REASON FOR REFERRAL No Information MEDICATIONS Medication SIG (Take, Route, Frequency, Duration) Notes Start Date End Date Status MiraLax (colon prep) 8.3 ounce ((238) grams mixed with Gatorade or Crystal Light orally begin at 5:00 p.m. the day before the procedure for 1 day 06/20/2020 Active Atorvastatin Calcium Active Aspirin 81 Active IMMUNIZATIONS Vaccine Route Administration Date Status Comme nts Influenza Unknown 06/20/2020 Refused SOCIAL HISTORY Sex Assigned At : Social History Observation Description Sex Assigned At Unknown Alcohol Screen Question Answer Notes Did you have a drink contain ing alcohol in the past year? Yes How often did you have a dri nk containing alcohol in the past year? 4 or more times a week (4 points) How many drinks did you have on a typical day when you were drinking in the past year? 5 or 6 drinks (2 points) How often did you have 6 or more drinks on one occasion in the past year? Never (0 point) Points 6 Interpretation Positive PROBLEMS Problem Type ICD Code Onset Dates Problem Status W/U Status Risk SNOMED Code Notes Problem Colon cancer screening (Z12.11) Active confirmed 488001653 Problem Encounter for long-term (current) use of other high-risk medications (Z79.899) Active confirmed 799226533 Problem Encounter for other preprocedural examination (Z01.818) Active confirmed 555211178 Problem Long-term use of aspirin therapy (Z79.82) Active confirmed 979527570 PLAN OF TREATMENT Future Test Test Name Order Date COLONOSCOPY 01/03/2015 COLONOSCOPY 06/20/2020 Insurance Providers Payer Name Payer Address Payer Phone Subscriber Number Group Number Insured Name Patient Relationship to Insured Coverage Start Date Coverage End Date [facility] [address] [place] [address] [id number] RADAMES GARCIA Self - patient is the insured MEDICAL (GENERAL) HISTORY Medical History History ICD Code left MCA CVA, thrombotic, s/p t-PA, slight residual right-sided weakness prior history of diabetes type 2, resolv ed with weight loss Surgical History Surgery Date(Month/Year) colonoscopy five-year follow up recommended due to limitations of prep 05/01 left carotid artery stent 10/29
== END 2024-04-14 10:44 | disposition home or self-care (01) ==
LOC: HO.LNP 10:43
PROVIDERS: Visit Provider Internal Medicine
DX: Z00.00 Encounter for general adult medical examination without abnormal findings (principal); E11.40 Type 2 diabetes mellitus with diabetic neuropathy, unspecified; I10 Essential (primary) hypertension; Z12.5 Encounter for screening for malignant neoplasm of prostate
CPT/HCPCS: 80053; 80061; 81001; 82043; 82570; 83036; 84153; 85025

== ENCOUNTER 2024-10-20 11:00 | Outpatient (REF) | payer BC, SELFPAY ==
--- OUTSIDE RECORDS SUMMARY | 2024-05-23 10:29 | XMS_ITS ---
Author Organization Ehsan Howard MD Address [address] [place] [phone] Care Team Providers Care Plywood Factory Worker Name Role Phone Ehsan Howard Primary Care Provider [phone] REASON FOR VISIT Diabetic eye exam Encounters Encounter Location Date Provider Diagnosis Ehsan Howard MD [address] [place] [address] [address] [place] [phone] 05/23/2024 Ehsan Howard Plan Of Treatment Next Appt Details Provider Name:Ehsan simms, 10/27/2024 07:30:00 AM, [address] [place] [address], [place] [address], [place], [place], [phone], Provider Name:Ehsan simms, 04/20/2025 07:15:00 AM, [address] [place] [address], [address] [facility], [place], [place], [phone], Provider Name:Ehsan simms, 04/27/2025 08:00:00 AM, [address], [address], [place], [place], [phone], Progress Notes * Vazquez GONZALES MDOB:1965 (59 yo M)Acc No.[id number]:05/23/2024 Patient: Shelli Vazquez CORTES :1965 A ge:58 Y S ex:Male Address:[address] [place] [address] [place] [address] * * Date:
--- OUTSIDE RECORDS SUMMARY | 2024-10-20 11:39 | XMS_ITS | Clinical Summary ---
Author Organization [facility] Address [address] [place] [address] Care Team Providers Care Senior Research Consultant Name Role Phone Unavailable Primary Care Provider [...] - 2023-2 5 season) 2023 Influenza (#1) 2024 RSV (1 - 1-dose 75+ series) 07/27/2038 HPV Vaccine (No Doses Required) Completed Hep A Aged Out No longer eligi [...]
--- OUTSIDE RECORDS SUMMARY | 2024-10-20 11:40 | XMS_ITS | Patient Health Record ---
Author Organization [facility] Address [address] [place] [phone] Care Team Providers Care Mds Coordinator Name Role Phone Lee KING, Ehsan Primary Care Provider Cam Pagan Jr Unavailable Reason For Referral No Information Medications Medication SIG (Take, Route, Frequency, Duration) Notes Start Date End Date Status MiraLax (colon prep) 8.3 ounce ((238) grams mixed with Gatorade or Crystal Light orally begin at 5:00 p.m. the day before the procedure for 1 day 06/20/2020 Active Atorvastatin Calcium Active Aspirin 81 Active Immunizations Vaccine Route Administration Date Status Comme nts Influenza Unknown 06/20/2020 Refused Social History Alcohol Screen Question Answer Notes Did you [...] Never (0 point) Points 6 Interpretation Positive Section Notes: 5 to 6 drinks, 3-4 times per week Problems Problem Type SNOMED Code ICD Code Onset Dates Problem Status W/U Status Risk Notes Problem 291003375 Colon cancer screening (Z12.11) Active confirmed Problem 719668399 Encounter for long-term (current) use of other high-risk medications (Z79.899) Active confirmed Problem 267847223 Encounter for other preprocedural examination (Z01.818) Active confirmed Problem 621185154 Long-term use of aspirin therapy (Z79.82) Active confirmed Plan Of Treatment Future Test Test Name Order Date COLONOSCOPY 01/03/2015 COLONOSCOPY 06/20/2020 Insurance Providers Payer Name Payer Address Payer Phone Subscriber Number Group Number Insured Name Patient Relationship to Insured Coverage Start Date Coverage End Date [facility] [address] [place] [address] [id number] [id number] GARCIA Self - patient is the insured Medical (General) History Medical History History ICD Code left MCA CVA, thrombotic, s/p t-PA, slight residual right-sided weakness prior history of diabetes type 2, resolv ed with weight loss Surgical History Surgery Date(Month/Year) colonoscopy five-year follow up recommended due to limitations of prep 05/01 left carotid artery stent 10/29
[2024-10-20 11:46] LABS: Hemoglobin A1C 135.8075 umol/L; Total Hemoglobin (HGBA1C) 3423.7447 umol/L
[2024-10-20 11:54] LABS: Alanine Aminotransferase 21 U/L (0-40); Albumin Level 3.9 g/dL (3.5-5.0); Alkaline Phosphatase 74 U/L (39-117); Aspartate Amino Transferase 30 U/L (5-37); Blood Urea Nitrogen 28 mg/dL (9-16); Cholesterol 134 mg/dL (<200); Estimated Glomerular Filt Rate 56; HDL Cholesterol 38 mg/dL (>40); Total Protein 7.3 g/dL (6.5-8.0); Triglycerides 108 mg/dL (<150)
[2024-10-20 13:11] LABS: Reflex LDLD? No
== END 2024-10-20 11:01 | disposition home or self-care (01) ==
LOC: HO.LNP 11:00
PROVIDERS: Visit Provider Internal Medicine
DX: E11.40 Type 2 diabetes mellitus with diabetic neuropathy, unspecified (principal); E78.00 Pure hypercholesterolemia, unspecified
CPT/HCPCS: 80061; 80076; 82565; 82947; 83036; 84520